=== PATIENT | male | born 1935 | race Caucasian/White ===

== ENCOUNTER 2020-04-11 09:09 | Emergency (ER) | payer MEDICARE ==
[~2020-04-11] VITALS: Ht 182.9 cm; Wt 108.9 kg
[~2020-04-11 09:09] MED LIST: AMOX-580 PO; DOCU-28 PO
--- NOTE | 2020-04-11 09:34 | NUR ---
To CT with SHEYLA Lynn at [id number]
--- NOTE | 2020-04-11 09:43 | NUR ---
Back from CT via ted at t his time, no signs of distress noted, all safety measures on place.
--- NOTE | 2020-04-11 12:18 | NUR ---
Pt resting comfortably in bed, waiting for CT results
[2020-04-11 13:12] VITALS: BP 123/87
== END 2020-04-11 13:15 | disposition home or self-care (01) ==
LOC: ER 09:10
DX: S00.03XA Contusion of scalp, initial encounter (principal); S00.83XA Contusion of other part of head, initial encounter; D68.59 Other primary thrombophilia; E78.00 Pure hypercholesterolemia, unspecified; M19.90 Unspecified osteoarthritis, unspecified site; Z90.89 Acquired absence of other organs; Z98.890 Other specified postprocedural states; Z72.89 Other problems related to lifestyle; Z88.8 Allergy status to other drugs, medicaments and biological substances; Z79.2 Long term (current) use of antibiotics; Z79.899 Other long term (current) drug therapy; W18.39XA Other fall on same level, initial encounter; Y93.89 Activity, other specified; Y92.89 Other specified places as the place of occurrence of the external cause; Y99.8 Other external cause status
CPT/HCPCS: 70450; 70486; 72125; 99285

== ENCOUNTER 2022-02-07 08:50 | Outpatient (CLI) | payer MEDICARE ==
[2022-02-05 10:10] LABS: ALBUMIN 3.9 G/DL (3.4-5.0); ANION GAP 7 (8-16); BLOOD UREA NITROGEN 18 MG/DL (7-18); BUN/CREATININE RATIO 22.8 (5.4-32.0); CALCIUM 8.7 MG/DL (8.5-10.1); CHLORIDE 104 MMOL/L (99-107); CREATININE 0.79 MG/DL (0.60-1.10); GLUCOSE 119 MG/DL (70-104); POTASSIUM 4.1 MMOL/L (3.5-5.1); SODIUM 140 MMOL/L (135-145); TOTAL CARBON DIOXIDE 29.2 MMOL/L (24-32); eGFR > 90 ML/MIN
[2022-02-07] MEDS ORDERED: iohexol 350MG/ML 100ml bottle IV ONE (08:52)
== END 2022-02-07 23:59 | disposition home or self-care (01) ==
LOC: RAD 08:50
PROVIDERS: ATTEND Nurse Practitioner
DX: J98.11 Atelectasis (principal); I25.10 Atherosclerotic heart disease of native coronary artery without angina pectoris; K44.9 Diaphragmatic hernia without obstruction or gangrene; I70.0 Atherosclerosis of aorta; K76.0 Fatty (change of) liver, not elsewhere classified; Z95.818 Presence of other cardiac implants and grafts
CPT/HCPCS: 36415; 75574; 80048; J3490; Q9967